=== PATIENT | male | born 1955 | race Caucasian/White ===

== ENCOUNTER 2021-11-03 13:12 | Emergency (ER) | payer SELFPAY ==
[2021-11-03] VITALS (10 sets, daily range): BP systolic 132–170; BP diastolic 88–100; PULSE 63–80; RESP 17–28; TEMP 36.3–36.8; O2SAT 90–98
--- NOTE | ~2021-11-03 | XR_ITS ---
EXAMINATION: XR chest 2V Exam Date/Time: 11/03/2021 14:13 CDT HISTORY: shortness of breath X 2 DAYS. HX OF COPD. CURRENT SMOKER. Comparison: None available. RESULT: Lines, tubes, and devices: None. Lungs and pleura: Clear. Emphysematous change. Cardiomediastinal silhouette: Aortic arch calcification. Other: No acute osseous or upper abdominal finding. IMPRESSION: No acute cardiopulmonary process. Reviewed, dictated and finalized at location K.
--- NOTE | 2021-11-03 13:55 | ED.SOB ---
HPI - SOB/Dyspnea General Chief Complaint: Shortness of Breath/Dyspnea Stated Complaint: breathing struggles Time Seen by Provider: 11/03/21 13:57 History of Present Illness HPI Narrative: 66-year-old male patient with known history of COPD is here with increased shortness of breath primarily because he has run out of all his inhalers. The patient continues to smoke 2 cigarettes a day. He denies any unusual cough. He does have smoker's cough. He denies any chest pain. He states that he is wheezing and having some shortness of breath. Patient denies any fever or chills. A he denies any COVID exposure and is vaccinated for COVID. His also exposed to secondhand smoke at times. Patient is not on any home oxygen. Patient also states that he has not seen his doctor in over a year and [facility] He has not had refills on his medications and his rescue inhaler has also run out. Related Data Home Medications Medication Instructions Recorded Confirmed albuterol sulfate 90 mcg/actuation 2 puff inhalation QID PRN SOB 11/03/21 11/03/21 aerosol inhaler (ProAir HFA) budesonide-formoterol HFA 160 2 puff inhalation Q12H 11/03/21 11/03/21 mcg-4.5 mcg/actuation aerosol inhaler (Symbicort) tiotropium bromide 1.25 2 puff inhalation DAILY 11/03/21 11/03/21 mcg/actuation mist for inhalation (Spiriva Respimat) Allergies Allergy/AdvReac Type Severity Reaction Status Date / Time No Known Allergies Allergy Verified 11/03/21 14:16 Review of Systems Review of Systems: All systems reviewed & are unremarkable except as noted in HPI and below Constitutional: Constitutional: Reports no additional constitutional complaints Eyes: Eyes: Reports no additional eye complaints ENT: Reports system reviewed and no additional complaints, except as documented Cardiovascular: Cardiovascular: Reports no additional cardiovascular complaints, Denies chest pain and Denies rapid heart rate Respiratory: Respiratory: Reports no additional respiratory complaints, Reports dyspnea and Reports wheezing Gastrointestinal: Gastrointestinal: Reports no additional gastrointestinal complaints Genitourinary: Genitourinary: Reports no additional male genitourinary complaints Musculoskeletal: Musculoskeletal: Reports no additional musculoskeletal complaints Integumentary/Breasts: Skin/Breast: Reports system reviewed and no additional complaints, except as docu Neurologic: Reports system reviewed and no additional complaints, except as documented Psychiatric: Psychiatric: Reports no additional psychiatric complaints Endocrine: Endocrine: Reports no additional endocrine complaints Hematologic/Lymphatic: Hematologic/Lymphatic: Reports no additional hematologic/lymphatic complaints Allergic/Immunologic: Allergic/Immunologic: Reports no additional allergic/immunologic complaints [facility] Past Medical History Medical History (Updated 11/03/21 @ 15:58 by Ashley Puri MD) COPD (chronic obstructive pulmonary disease) Social History Social History (Updated 11/03/21 @ 14:31 by Ashley Puri MD) Smoking packs per day: 0 Smoking cigarettes per day: 0.0 Exam Narrative: Alert male patient in no acute distress. Vital signs show blood pressure of 170/90 and pulse rate of 80 and respiratory rate of 28 with an SpO2 of 90% on room air which is improved to 96% with 2 L of oxygen. Patient is afebrile HEENT: normocephalic. Midsized pupils equal and reactive to light. EOMs are intact. Ear nose throat are normal. Patient is partially edentulous. He does have some dental caries. Neck is supple. Chest wall is nontender. No retractions are noted. The breath sounds are audible bilaterally although they are very tight. Heart tones are regular. Abdomen is soft and nontender. Extremities are void of any pedal edema. Skin is warm and dry . Turgor is good Neurologic exam is normal Mood and affect yadira
[2021-11-03] MEDS: methylPREDNISolone SOD SUCC 125 MG VIAL IV PUSH (14:32)
[2021-11-03] MEDS: IPRATROPIUM 0.5 MG/ALBUTEROL SULFATE 2.5 MG AMPUL.NEB 3 ML INHALATION (14:34)
[2021-11-03 14:36] LABS: Basophils Absolute Auto 0.05 K/mm3 (0.00-0.10); Eosinophils Absolute Auto 0.39 K/mm3 (0.02-0.50); Eosinophils Percent Auto 7.8 % (1.0-6.0); Hematocrit 42.8 % (37.0-46.0); Hemoglobin 13.9 g/dL (12.4-15.3); Immature Granulocyte Absolute 0.02 K/mm3 (0.00-0.00); Immature Granulocyte Percent A 0.4 % (0.0-0.0); Lymphocytes Absolute Auto 1.08 K/mm3 (1.10-4.50); Lymphocytes Percent Auto 21.5 % (18.0-42.0); Mean Corpuscular HGB Conc 32.5 g/dL (32.0-36.0); Mean Corpuscular Hemoglobin 29.8 pg (27.0-31.0); Mean Corpuscular Volume 91.8 fL (78.0-102.0); Mean Platelet Volume 9.1 fl (8.7-11.0); Monocytes Absolute Auto 0.42 K/mm3 (0.10-0.90); Monocytes Percent Auto 8.3 % (2.0-11.0); Neutrophils Absolute Auto 3.1 K/mm3 (1.7-7.2); Platelet Count Result 200 K/mm3 (150-420); Red Blood Count 4.66 M/mm3 (4.70-6.10); Red Cell Distribution Width 13.2 % (11.6-14.4)
[2021-11-03 14:50] LABS: Alanine Aminotransferase 15 U/L (16-63); Albumin Level 3.9 g/dL (3.4-5.0); Alkaline Phosphatase 104 U/L (46-116); Anion Gap 6 mmol/L (8-16); Aspartate Amino Transferase 18 U/L (15-37); Bilirubin,Total 0.4 mg/dL (0.00-1.00); Blood Urea Nitrogen 12 mg/dL (7-18); Calcium 9.1 mg/dL (8.5-10.1); Carbon Dioxide 29 mmol/L (21-32); Chloride 102 mmol/L (98-108); Estimated CRCL calculation 78 ml/min; Estimated Glomerular Filt Rate > 60; Glucose 100 mg/dL (70-99); Osmolality Calculated 283 mOsm/kg (285-295); Potassium 3.9 mmol/L (3.5-5.1); Sodium 137 mmol/L (136-145); Total Protein 7.4 g/dL (6.4-8.2)
[2021-11-03] MEDS: ALBUTEROL SULFATE (*SP) INHALER 2 PUFF INHALATION (16:11)
== END 2021-11-03 16:23 | disposition home or self-care (01) ==
PROVIDERS: Emergency Provider Emergency Medicine
DX: J44.9 Chronic obstructive pulmonary disease, unspecified (principal)
CPT/HCPCS: 36415; 71046; 80053; 85025; 94640; 96374; 99284; A9270; J2930

== ENCOUNTER 2024-08-01 10:36 | Outpatient (CLI) | payer MEDICARE, SELFPAY ==
--- NOTE | ~2024-08-01 | XR_ITS ---
XR chest 2V Ordering provider: Andreia Weiss APRN History: 69 years Male with . SOB w/ exertion, COPD . Comparison: None. FINDINGS: MEDIASTINUM: The cardiac silhouette is not enlarged. LUNGS: No infiltrates, effusions or pneumothorax. Emphysematous changes of the lungs. Blunting of the posterior costophrenic angles which may indicate fibrotic changes versus minimal effusion. OTHER: No free air under the diaphragm. Degenerative the spine. IMPRESSION: No acute cardiopulmonary pathology. Reviewed, dictated and finalized at location A.
[2024-08-01 11:00] LABS: Base Excess ABG 8.2 mmol/L (0-2); HCO3 ABG 32.5 mmol/L (23-29); Oxygen Saturation ABG 90.9 % (95-97); Oxyhemoglobin 89.2 % (94-100); PCO2 ABG 43.1 mmHg (35-45); PO2 ABG 56.5 mmHg (75-85)
[2024-08-01 11:01] LABS: Device ROOM AIR; Modified Allen's Test Pass; Site Drawn RIGHT RADIAL
--- NOTE | 2024-08-01 11:01 | ECG_ITS ---
Test Date: 2024-08-01 11:19:02 Measurements Intervals Waka Rate: 76 P: 83 AL: 136 QRS: 84 QRSD: 86 T: 88 QT: 375 QTc: 424 Interpretive Statements SINUS RHYTHM WITH MARKED SINUS ARRHYTHMIA WITH OCCASIONAL SUPRAVENTRICULAR PREMATURE COMPLEXES INCOMPLETE RIGHT BUNDLE BRANCH BLOCK BORDERLINE ST-T WAVE ABNORMALITY- DIFFUSE LEADS ABNORMAL ECG No previous ECG available for comparison Electronically Signed On 08-01-2024 11:47:32 CDT by Igor Del Cid D.O.
[2024-08-01 11:12] LABS: Basophils Absolute Auto 0.04 K/mm3 (0.00-0.10); Eosinophils Absolute Auto 0.15 K/mm3 (0.02-0.50); Eosinophils Percent Auto 3.7 % (1.0-6.0); Hematocrit 50.6 % (37.0-46.0); Hemoglobin 15.4 g/dL (12.4-15.3); Immature Granulocyte Absolute 0.02 K/mm3 (0.00-0.00); Immature Granulocyte Percent A 0.5 % (0.0-0.0); Lymphocytes Absolute Auto 0.56 K/mm3 (1.10-4.50); Lymphocytes Percent Auto 13.8 % (18.0-42.0); Mean Corpuscular HGB Conc 30.4 g/dL (32-36); Mean Corpuscular Hemoglobin 29.8 pg (27.0-31.0); Mean Corpuscular Volume 97.9 fL (78.0-102.0); Mean Platelet Volume 10.3 fl (8.7-11.0); Monocytes Absolute Auto 0.34 K/mm3 (0.10-0.90); Monocytes Percent Auto 8.4 % (2.0-11.0); Neutrophils Absolute Auto 2.95 K/mm3 (1.70-7.20); Neutrophils Percent Auto 72.6 % (50.0-70.0); Platelet Count Result 168 K/mm3 (150-420); Red Blood Count 5.17 M/mm3 (4.70-6.10); Red Cell Distribution Width 14.8 % (11.6-14.4); White Blood Count 4.1 K/mm3 (4.8-10.8)
[2024-08-01 11:36] LABS: Alanine Aminotransferase 58 U/L (6-50); Albumin Level 3.9 g/dL (3.5-5.1); Alkaline Phosphatase 109 U/L (38-126); Anion Gap 4 mmol/L (4-12); Aspartate Amino Transferase 137 U/L (17-59); Bilirubin,Total 1.1 mg/dL (0.2-1.3); Blood Urea Nitrogen 19 mg/dL (9-20); Calcium 8.8 mg/dL (8.4-10.2); Carbon Dioxide 34 mmol/L (22-30); Chloride 102 mmol/L (98-107); Cholesterol 139 mg/dL (0-200); Estimated Glomerular Filt Rate > 60; Glucose 93 mg/dL (65-110); HDL Direct 39 mg/dL; LDL Cholesterol Calculated 84 mg/dL (<130); Osmolality Calculated 292 mOsm/kg (285-295); Potassium 5.1 mmol/L (3.4-5.0); Sodium 140 mmol/L (137-145); Total Protein 6.7 g/dL (6.3-8.2); Triglycerides 81 mg/dL (<150)
--- OUTSIDE RECORDS SUMMARY | 2024-08-01 11:36 | XMS_ITS | Continuity of Care Document ---
Author Name [facility] Organization [facility] Care Team Providers Care Armament Installer Name Role Phone [facility] Unavailable Unavailable Problems Combined list of problems from Department of [facility] and [facility] facilities. It does not include entries that were removed or entered in error. Problem Status Onset Date Problem Type Date of Resolution Comments Source Chronic hepatitis C without mention of hepatic coma (ICD-9-CM 070.54) Active Condition [facility] Elevated Liver Function Tests Active Condition [facility] History of radiation therapy Active Condition [facility] Inguinal hernia Active Condition [facility] Polyp of colon Active Condition [facility] Primary malignant neoplasm of prostate Active Condition [facility] Severe chronic obstructive pulmonary disease Active Condition [facility] Solitary nodule of lung Active Condition [facility] Vitamin D deficiency Active Condition [facility] Medications Combined list of outpatient medications from Department of [facility] and [facility] facilities.Medications provided include 1) outpatient medications from the last 15 months, and 2) patient-reported medications. Medication Details Route Status Patient Instructions Prescription Expires Prescription Number Last Dispense Date Ordering Provider Order Date Order Qty Source ALBUTEROL SO4 90MCG/ACTUA T (CFC-F) INHL,ORAL,8 .5GM INHALE 2 PUFFS BY ORAL INHALATI ON FOUR TIMES A DAY NEEDED FOR BREATHIN G. SHAKE WELL. RINSE MOUTHPIE CE FREQUENT LY TO PREVENT CLOGGING . RESPIR ATORY (INHAL ATION) DISCONT INUED 06/22/2024 [id number] ALEXSANDER GARCIA 2023 1 [facility] ALBUTEROL SO4 90MCG/ACTUA T (CFC-F) INHL,ORAL,8 .5GM INHALE 2 PUFFS BY ORAL INHALATI ON FOUR TIMES A DAY NEEDED FOR BREATHIN G. SHAKE WELL. RINSE MOUTHPIE CE FREQUENT LY TO PREVENT CLOGGING . RESPIR ATORY (INHAL ATION) DISCONT INUED 12/25/2023 [id number] 4 ALEXSANDER GARCIA D 2022 1 [facility] ALBUTEROL SO4 90MCG/ACTUA T (CFC-F) INHL,ORAL,8 .5GM INHALE 2 PUFFS BY ORAL INHALATI ON FOUR TIMES A DAY NEEDED FOR BREATHIN G. SHAKE WELL. RINSE MOUTHPIE CE FREQUENT LY TO PREVENT CLOGGING . RESPIR ATORY (INHAL ATION) 12/25/2023 [id number] ALEXSANDER GARCIA Kimo D 2023 3 [facility] Immunizations Combined list of available immunizations from the Department of Defense and Veterans Affairs facilities. Immunization Series Date Given Administered By Site Reaction Lot Number CVX Code Drug Electric Operator Status Comments Source INFLUENZA, HIGH-DOSE, QUADRIVALENT 2021 197 complet ed HISTORICA L INFORMATI ON - FROM OTHER PROVIDER, Partner:Roldan BRAVO.Admin istered by:[facility] [id number].([phone]) .NDC:4928 [id number] ddress:[address] [facility].IL.620 [id number] Dosage: ML 0.7 [facility] INFLUENZA, HIGH-DOSE, QUADRIVALENT 2020 197 complet ed HISTORICA L INFORMATI ON - FROM OTHER PROVIDER, Partner:Roldan BRAVO.Admin istered by:[facility] [id number].([id number]) .NDC:4928 [id number] ddress:[address].IL.620 [id number] Dosage: ML 0.7 [facility] COVID-19 (PFIZER), MRNA, LNP-S, PF, 30 MCG/0.3 ML DOSE 1 2020 208 complet ed PFR; [id number]; 1 [facility] INFLUENZA, HIGH-DOSE, QUADRIVALENT 2019 197 complet ed [facility] INFLUENZA, INJECTABLE, QUADRIVALENT, PRESERVATIVE FREE 2019 150 complet ed [facility] TD(ADULT) UNSPECIFIED FORMULATION 2019 139 complet ed Left Deltoid [facility] INFLUENZA, INJECTABLE, QUADRIVALENT, PRESERVATIVE FREE 2017 150 complet ed [facility] [place] [facility] INFLUENZA, UNSPECIFIED FORMULATION 2012 88 complet ed [facility] HEP A-HEP B 2010 104 complet ed [facility] INFLUENZA, UNSPECIFIED FORMULATION 2010 88 complet ed [facility] HEP A-HEP B 2010 104 complet ed [facility] INFLUENZA, UNSPECIFIED FORMULATION 2009 88 complet ed [facility] HEP A-HEP B 2009 104 complet ed [facility] TDAP 2009 115 complet ed [facility] Encounters Combined list of: 1) Encounters from Department of Veterans Affairs facilities going backup to the last 18 months, not all [place] inpatient encounters are included; 2) Encounters from the Department of Defense facilities going backup to 280 months. Location Location Details Encounter Type Encounter Number Reason For Visit Attending Provider ADM Date DC Date Status Disposition Source [facility] Outpatient Encounter [id number] 02/03 [facility] Outpatient Encounter [id number] 02/19 [facility] Outpatient Encounter [id number] KULDIP GARCIA 02/22 [facility] Outpatient Encounter [id number] 1 KULDIP GARCIA 03/01 [facility] Social History Combined list of available smoking, tobacco, and other social history from Department of Defense and Veterans Affairs facilities. Social History Type Response Date Comment Sourc e Tobacco smoking status NHIS VA-TOBACCO USE MED NO 02/01/2019 [facility] History of tobacco use VA-TOBACCO USE DATASTAGE CONSULTANT NO 02/01/2019 [facility] History of tobacco use [place] FORMER USER 11/30/2017 [facility] [place] [facility] History of tobacco use CURRENT TOBACCO USER 11/22/2012 [facility] History of tobacco use CURRENT TOBACCO USER 06/05/2009 Cindy ESTEBAN Nando Escobar [facility]
[2024-08-01 11:46] LABS: Influenza A QL RT-PCR Negative (Negative); Influenza B QL RT-PCR Negative (Negative); RSV RNA, RT-PCR Negative (Negative); SARS-CoV-2 RNA PCR Negative (Negative)
[2024-08-01 12:03] LABS: Prostate Specific Antigen 0.2 ng/mL (< OR = 4.0)
[2024-08-01 13:41] LABS: Troponin I < 0.012 ng/mL (0.000-0.034)
[2024-08-01 19:14] LABS: Hemoglobin A1C 5.5 % (<5.7)
== END 2024-08-01 10:37 | disposition home or self-care (01) ==
LOC: CHSLAB 10:38
PROVIDERS: PCP Nurse Practitioner Family; Visit Provider Nurse Practitioner Family
DX: J44.1 Chronic obstructive pulmonary disease with (acute) exacerbation (principal); C61 Malignant neoplasm of prostate; Z13.83 Encounter for screening for respiratory disorder NEC; Z13.89 Encounter for screening for other disorder; Z13.6 Encounter for screening for cardiovascular disorders; Z13.1 Encounter for screening for diabetes mellitus; R63.4 Abnormal weight loss; R06.02 Shortness of breath; I45.19 Other right bundle-branch block; R94.31 Abnormal electrocardiogram [ECG] [EKG]
CPT/HCPCS: 36415; 36600; 71046; 80053; 80061; 82805; 83036; 84153; 84443; 84484; 85025; 87637; 93005

== ENCOUNTER 2024-08-31 11:44 | Outpatient (CLI) | payer MEDICARE, SELFPAY ==
--- NOTE | 2024-08-31 | CONSULT_PTH ---
PATIENT: J Luis Ravi LOC: [facility]#:[id number] AGE/SX: 69/M ROOM: RE08/31/[address]: Andreia Weiss APRN : 1955 BED: DIS: 08/31/2024 SPEC #: [id number] RECD: 08/31/24 12:27 STATUS: FORREST REQ #: [id number] RENEE: 08/31/24 00:[address]: Andreia Weiss DEPT: [facility] Consult RECD BY: Kinga Stallings MLT, ([facility]) Tissues: A - Peripheral Smear Procedures: Hematology Consult
[2024-08-31 11:54] LABS: Hematocrit 46.1 % (37.0-46.0); Hemoglobin 14.8 g/dL (12.4-15.3); Mean Corpuscular HGB Conc 32.1 g/dL (32-36); Mean Corpuscular Hemoglobin 30.3 pg (27.0-31.0); Mean Corpuscular Volume 94.3 fL (78.0-102.0); Platelet Count Result 318 K/mm3 (150-420); Red Blood Count 4.89 M/mm3 (4.70-6.10); White Blood Count 3.6 K/mm3 (4.8-10.8)
--- OUTSIDE RECORDS SUMMARY | 2024-08-31 12:07 | XMS_ITS | Continuity of Care Document ---
Author Name [facility] Organization [facility] Care Team Providers Care Pastry Wrapper Name Role Phone [facility] Unavailable Unavailable Problems Combined list of problems from Department of [facility] facilities. It does not include entries that were removed or entered in error. Problem Status Onset Date Problem Type Date of Resolution Comments Source Chronic hepatitis C without mention of hepatic coma (ICD-9-CM 070.54) Active Condition [facility] Elevated Liver Function Tests Active Condition [facility] History of radiation therapy Active Condition [facility] Inguinal hernia Active Condition [facility] Polyp of colon Active Condition [facility] Primary malignant neoplasm of prostate Active Condition [facility] Severe chronic obstructive pulmonary disease Active Condition [facility] Solitary nodule of lung Active Condition [facility] Vitamin D deficiency Active Condition [facility] Medications Combined list of outpatient medications from Department of [facility] and [facility] facilities.Medications provided include 1) outpatient medications from [...] RESPIR ATORY (INHAL ATION) DISCONT INUED 06/22/2024 [id number] ALEXSANDER GARCIA 2023 1 [facility] ALBUTEROL SO4 90MCG/ACTUA T (CFC-F) INHL,ORAL,8 .5GM INHALE 2 PUFFS BY ORAL INHALATI ON FOUR TIMES A DAY NEEDED FOR BREATHIN G. SHAKE WELL. RINSE MOUTHPIE CE FREQUENT LY TO PREVENT CLOGGING . RESPIR ATORY (INHAL ATION) DISCONT INUED 12/25/2023 [id number] 4 ALEXSANDER GARCIA D 2022 1 [facility] ALBUTEROL SO4 90MCG/ACTUA T (CFC-F) INHL,ORAL,8 .5GM INHALE 2 PUFFS BY ORAL INHALATI ON FOUR TIMES A DAY NEEDED FOR BREATHIN G. SHAKE WELL. RINSE MOUTHPIE CE FREQUENT LY TO PREVENT CLOGGING . RESPIR ATORY (INHAL ATION) 12/25/2023 [id number] 4 ALEXSANDER GARCIA Kimo D 2023 3 [facility] Immunizations Combined list of available immunizations from the Department of Defense and Veterans Affairs facilities. Immunization Series Date Given Administered By Site Reaction Lot Number CVX Code Drug [employer] Professional Status Comments Source INFLUENZA, HIGH-DOSE, QUADRIVALENT 2021 197 complet ed HISTORICA L INFORMATI ON - FROM OTHER PROVIDER, Partner:Roldan BRAVO.Admin istered by:[facility] [id number].([id number]) .NDC:4928 [id number] ddress:[address] [facility].IL.620 [id number] Dosage: ML 0.7 [facility] INFLUENZA, HIGH-DOSE, QUADRIVALENT 2020 197 complet ed HISTORICA L INFORMATI ON - FROM OTHER PROVIDER, Partner:Roldan BRAVO.Admin istered by:[facility] [id number].([id number]) .NDC:4928 [id number] ddress:[address] ON.IL.620 [id number] Dosage: ML 0.7 [facility] COVID-19 (PFIZER), MRNA, LNP-S, PF, 30 MCG/0.3 ML DOSE 1 2020 208 complet ed PFR; [id number]; 1 [facility] INFLUENZA, HIGH-DOSE, QUADRIVALENT 2019 197 complet ed [facility] INFLUENZA, INJECTABLE, QUADRIVALENT, PRESERVATIVE FREE 2019 150 complet ed [facility] TD(ADULT) UNSPECIFIED FORMULATION 2019 139 complet ed Left Deltoid [facility] INFLUENZA, INJECTABLE, QUADRIVALENT, PRESERVATIVE FREE 2017 150 complet ed [facility] [address] [facility] [place] [facility] INFLUENZA, UNSPECIFIED FORMULATION 2012 88 complet ed [facility] HEP A-HEP B 2010 104 complet ed [facility] INFLUENZA, UNSPECIFIED FORMULATION 2010 88 complet ed [facility] HEP A-HEP B 2010 104 complet ed [facility] INFLUENZA, UNSPECIFIED FORMULATION 2009 88 complet ed [facility] HEP A-HEP B 2009 104 complet ed [facility] TDAP 2009 115 complet ed [facility] Encounters Combined list of: 1) Encounters from Department of Veterans Affairs facilities going backup to the last 18 months, not all [place] inpatient encounters are included; 2) Encounters from the Department of Defense facilities going backup to 280 months. Location Location Details Encounter Type Encounter Number Reason For Visit Attending Provider ADM Date DC Date Status Disposition Source [facility] Outpatient Encounter [id number] 02/03 [facility] Outpatient Encounter [id number] 02/19 [facility] Outpatient Encounter [id number] KULDIP GARCIA 02/22 [facility] Outpatient Encounter [id number] KULDIP GARCIA 03/01 [facility] Social History Combined list of available smoking, tobacco, and other social history from Department of Defense and Veterans Affairs facilities. 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
[2024-08-31 12:20] LABS: Alanine Aminotransferase 77 U/L (6-50); Albumin Level 4.1 g/dL (3.5-5.1); Alkaline Phosphatase 123 U/L (38-126); Anion Gap 3 mmol/L (4-12); Aspartate Amino Transferase 247 U/L (17-59); Bilirubin,Total 0.8 mg/dL (0.2-1.3); Blood Urea Nitrogen 13 mg/dL (9-20); Calcium 9.0 mg/dL (8.4-10.2); Carbon Dioxide 33 mmol/L (22-30); Chloride 102 mmol/L (98-107); Estimated Glomerular Filt Rate > 60; Glucose 76 mg/dL (65-110); Osmolality Calculated 285 mOsm/kg (285-295); Potassium 4.4 mmol/L (3.4-5.0); Sodium 138 mmol/L (137-145); Total Protein 6.8 g/dL (6.3-8.2)
[2024-08-31 12:31] LABS: Band Neutrophils Percent 0 % (0-6); Basophils Absolute Manual 0.07 K/mm3 (0-0.1); Basophils Percent Manual 2 % (0-1); Eosinophils Absolute Manual 0.14 K/mm3 (0.02-0.50); Eosinophils Percent Manual 4 % (1-6); Lymphocytes Absolute Manual 0.61 K/mm3 (1.1-4.5); Lymphocytes Percent Manual 17 % (18-44); Monocytes Absolute Manual 0.46 K/mm3 (0.1-0.90); Monocytes Percent Manual 13 % (3-9); Neutrophils Absolute Manual 2.30 K/mm3 (1.3-6.7); Neutrophils Percent Manual 64 % (46-73); Total Cells Counted 100
[2024-08-31 12:32] LABS: Schistocytes None Seen
[2024-08-31 12:49] LABS: Lipase 55 U/L (23-300)
== END 2024-08-31 11:45 | disposition home or self-care (01) ==
LOC: CHSLAB 11:46
PROVIDERS: PCP Nurse Practitioner Family; Visit Provider Nurse Practitioner Family
DX: C61 Malignant neoplasm of prostate (principal); R74.8 Abnormal levels of other serum enzymes; R79.89 Other specified abnormal findings of blood chemistry
CPT/HCPCS: 36415; 80053; 80074; 83690; 85025